=== PATIENT | male | born 1935 | race Caucasian/White ===

== ENCOUNTER → 2024-04-17 06:56 | Outpatient (REF) | payer MEDICARE, OTHER, SELFPAY | LOC: RAD 06:56 | PROVIDERS: ATTENDING PHYSICIAN Anesthesiology Pain Medicine; FAMILY PHYSICIAN Internal Medicine | DX: R10.2 Pelvic and perineal pain (principal) | CPT/HCPCS: 72192 ==

== ENCOUNTER → 2024-08-08 07:01 | Outpatient (REF) | payer MEDICARE, OTHER, SELFPAY | LOC: RCS 07:01 | PROVIDERS: ATTENDING PHYSICIAN Internal Medicine Cardiovascular Disease; FAMILY PHYSICIAN Internal Medicine | DX: I48.0 Paroxysmal atrial fibrillation (principal); I34.0 Nonrheumatic mitral (valve) insufficiency; I10 Essential (primary) hypertension | CPT/HCPCS: 93306 ==